=== PATIENT | female | born 1985 | race Caucasian/White ===

== ENCOUNTER → 2016-11-30 | Outpatient (CLI) | payer OTHER ==
[~2016-11-30] MED LIST: ASPI-390 PO; CLON0.5T3 PO; CLR10 PO; FLUO20CA35 PO; PRAZ5CAP2 PO; PRLSR20 PO; QUET1TAB32 PO
[2016-11-30 11:54] LABS: THYROID STIMULATING HORMONE 1.38 uIu/ml (0.300-4.500)
[2016-11-30 11:57] LABS: BENZODIAZEPINE, URINE NEG (NEG); COCAINE,URINE NEG (NEG); PHENCYCLIDINE, URINE NEG (NEG)
== END | disposition home or self-care (01) ==
LOC: C.LAB 10:45
PROVIDERS: ATTEND Urology
DX: Z79.899 Other long term (current) drug therapy (principal)